=== PATIENT | female | born 1985 | race Caucasian/White ===

== ENCOUNTER 2016-12-16 09:31 | Observation (INO) | payer OTHER ==
[2016-12-09 14:50] VITALS: BMI 55.0
[2016-12-16] VITALS (7 sets, daily range): BP systolic 97–137; BP diastolic 60–89; PULSE 91–115; TEMP 36.5–37.5; O2SAT 91–98; Ht 162.6 cm; Wt 145.4 kg
[~2016-12-16] VITALS: Ht 162.6 cm; Wt 145.4 kg
[~2016-12-16 09:31] MED LIST: ACET325T96 PO; ALBUAER INH; CEFAZOLIN 3000 MG/65 ML D5W 65 ML IV SCH; CYCL10TA6 PO; DICL-201 PO; ENOXAPARIN 40 MG/0.4 ML SYR SQ SCH; FENTANYL CITRATE INJ 50 MCG/1 ML 2 ML VIAL ONE; LACTATED RINGER'S 1000ML 1,000 ML IV SCH; LEVO-371 PO; MIDAZOLAM HCL 1 MG/ML 2ML VIAL ONE; PRLSR20 PO; TEST1INJ2 IM
[2016-12-16] MEDS ORDERED: LIDOCAINE/EPINEPHRINE 1% 20 ML VIAL ONE (10:18)
[2016-12-16] MEDS ORDERED: BUPIVACAINE/EPINEPHRINE 0.25% 1:200,000 30 ML VIAL ONE (10:19)
[2016-12-16] MEDS ORDERED: BUPIVACAINE 0.25% 30 ML VIAL ONE (10:19)
--- NOTE | 2016-12-16 10:20 | History & Physical Bridge Note ---
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
[2016-12-16] MEDS ORDERED: SCOPOLAMINE 1.5 MG TDSY TD ONE ×2 (10:36→10:45)
[2016-12-16] MEDS ORDERED: EpHEDrine SULFATE INJ 50 MG/ML AMP IV PRN (10:45)
[2016-12-16] MEDS ORDERED: ONDANSETRON INJ 2 MG/ML 2 ML VIAL IV PRN ×2 (10:45→15:00)
[2016-12-16] MEDS ORDERED: ATROPINE SULFATE 0.1 MG/ML 5ML SYR IV PRN (10:45)
[2016-12-16] MEDS ORDERED: FENTANYL CITRATE INJ 50 MCG/1 ML 2 ML VIAL IV PRN (10:45)
[2016-12-16] MEDS ORDERED: HYDROmorphone INJ 1 MG/ML SYR IV PRN (10:45)
[2016-12-16] MEDS ORDERED: PROPOFOL IV EMULSION 10 MG/ML 20 ML VIAL IV ONE (11:12)
[2016-12-16] MEDS ORDERED: LIDOCAINE HCL 2% 2 ML VIAL (20MG/ML) ONE (11:12)
[2016-12-16] MEDS ORDERED: ROCURONIUM BROMIDE 10 MG/ML 5 ML VIAL ONE (11:12)
[2016-12-16] MEDS ORDERED: GLYCOPYRROLATE INJ 0.2 MG/ML VIAL ONE (11:12)
[2016-12-16] MEDS ORDERED: NEOSTIGMINE METHYLSULFATE 5 MG/5 ML SYR ONE (11:12)
[2016-12-16] MEDS ORDERED: ONDANSETRON INJ 2 MG/ML 2 ML VIAL ONE (11:12)
[2016-12-16] MEDS ORDERED: SUCCINYLCHOLINE CHLORIDE 20 MG/ML 10 ML VIAL IV ONE (11:12)
[2016-12-16] MEDS ORDERED: FENTANYL CITRATE INJ 50 MCG/1 ML 2 ML VIAL ONE ×4 (11:13→13:57)
[2016-12-16] MEDS ORDERED: ACETAMINOPHEN 1000 MG/100 ML IV IV ONE (11:17)
[2016-12-16] MEDS ORDERED: PHENYLEPHRINE 100MCG/ML 5ML SYR ONE (12:39)
--- NOTE | 2016-12-16 14:44 | [facility] Post Operative Brief Note ---
Immediate Operative Summary Operative Date Dec 16, 2016. Pre-Operative Diagnosis Hsolns-cm-wtin transgender/gender dysphoria Post-Operative Diagnosis Same as preoperative diagnosis Procedure(s) Performed Bilateral Non-Cancerous Mastectomy with Free Nipple Graft Surgeon Dr. Vane Chacon Developmental Mathematics Instructor Surgeon(s) Delphine eLzama PA-C Estimated Blood Loss 50 mL Findings none Specimens C: additional midline breast tissue Drains KATLIN x2 Anesthesia general Complication(s) None Disposition Recovery Room / PACU
--- NOTE | 2016-12-16 14:54 | Discharge Instructions ---
Discharge Instructions Date of Service Dec 16, 2016. Admission Reason for Admission: [facility] Transgender Person Discharge Discharge Diagnosis / Problem: gender dysphoria Discharge Goals Goal(s): Decrease discomfort Activity Recommendations Activity Limitations: per Instructions/Follow-up section . Instructions / Follow-Up Instructions / Follow-Up ACTIVITY RECOMMENDATIONS: __Normal activities _x_No bending, lifting or straining __No driving __Driving allowed when you are off pain medications _x_Walking permitted __You should have help at home for ___ days DRESSINGS: __No dressings required _x_Keep dressings dry/in place until first office visit __Remove dressings ___ and leave dressings off __Apply ice ___ days __Remove dressings and reapply garment __Apply antibiotic ointment (Bacitracin, Neosporin, etc) to wounds 3-4 times/ day for 10 days BATHING: _x_Keep dressings dry _x_Sponge bathing permitted __Showering permitted _x_No swimming, hot tubs or soaking in a tub MEDICATIONS: Resume previous medications unless instructed otherwise by your surgeon. _x_Do not use aspirin, Motrin, Advil or Ibuprofen as these may promote bleeding. Please use Tylenol. _x_Prescription(s) provided: pain medication and antibiotics were provided at your last office visit OTHER INSTRUCTIONS: _x_Record drain output 2-3 times per day. Call the office when drainage is less than 20mL/24 hours SPECIAL CARE INSTRUCTIONS: * It is normal to have a mild fever after surgery. If your temperature is higher than 101.5 degrees F, please call the office at [phone]. * Constipation is a typical side effect of pain medication. An over-the- counter stool softener will help relieve this. * Leaking around surgical drains may occur and should not cause concern. Sometimes these drains become clogged. If this happens, remove the bulb and milk the clot out of the tube, then replace the bulb. * Drainage from wounds after liposuction is normal and should be expected. Garments will become soiled. You should protect furniture and bedding. This drainage should mostly subside within 2-3 days. Leave garments in place unless instructed to remove them. * If you have unusual drainage from a wound or are concerned you have an infection or have any questions or concerns, please call the office at [phone]. FOLLOW UP VISIT: If not already scheduled, please call the office, , when you return home after surgery to schedule an appointment to be seen in _6__ days. Current Hospital Diet Patient's current hospital diet: Regular Diet Discharge Diet Recommended Diet: Regular Diet Procedures Procedures Performed: Bilateral Non-Cancerous Mastectomy with Free Nipple Graft Pending Studies Studies pending at discharge: yes List of pending studies: pathology Medical Emergencies . Who to Call and When: Medical Emergencies: If at any time you feel your situation is an emergency, please call 911 immediately. . Non-Emergent Contact Non-Emergency issues call your: Primary Care Provider, Surgeon . "Provider Documentation" section prepared by Delphine Lezama. . VTE Core Measure Inpt VTE Proph given/why not?: Enoxaparin (Lovenox)SQ, SCD's [place] Drug Monitoring Program Search Results: no issues identified
[2016-12-16] MEDS ORDERED: IV FLUIDS COMPLETED PRN (15:00)
[2016-12-16] MEDS ORDERED: MoRPHine SULFATE 2 MG/ML CARP IV PRN ×3 (15:00)
[2016-12-16] MEDS ORDERED: PROMETHAZINE HCL INJ 12.5 MG in SODIUM CHLORIDE 0.9% 50ML 50 ML IV PRN (15:00)
[2016-12-16] MEDS ORDERED: OXAZEPAM 10MG CAP PO PRN (15:00)
[2016-12-16] MEDS ORDERED: OXYCODONE/ACETAMINOPHEN 5-325 TAB PO PRN (15:00)
[2016-12-16] MEDS ORDERED: ACETAMINOPHEN 325 MG TAB PO PRN (15:00)
[2016-12-16] MEDS ORDERED: DiphenhydrAMINE HCL 50 MG/ML VIAL IV PRN (15:00)
--- NOTE | 2016-12-16 15:38 | Anesthesiology Progress Note ---
Anesthesia Post Op Note Date & Time Dec 16, 2016 at 15:38 Vital Signs Pain Intensity: 0 Vital Signs Past 12 Hours Date Time Temp Pulse Resp B/P (MAP) Pulse Ox O2 Delivery O2 Flow Rate FiO2 12/16/16 15:22 36.8 101 15 132/82 (95) 96 Nasal Cannula 2 12/16/16 15:16 143/83 12/16/16 15:16 143/83 12/16/16 15:14 105 15 12/16/16 15:14 105 15 94 12/16/16 15:14 105 15 12/16/16 15:14 105 15 94 12/16/16 15:11 136/81 12/16/16 15:11 136/81 12/16/16 15:09 115 34 12/16/16 15:09 115 34 12/16/16 15:09 117 34 95 12/16/16 15:09 117 34 95 12/16/16 15:06 131/80 12/16/16 15:06 131/80 12/16/16 15:04 106 0 94 12/16/16 15:04 106 0 12/16/16 15:04 106 0 12/16/16 15:04 106 0 94 12/16/16 15:01 130/80 12/16/16 15:01 130/80 12/16/16 15:00 134/85 12/16/16 15:00 134/85 12/16/16 14:59 36.6 117 16 134/85 94 Mask 10 12/16/16 10:10 37.1 96 20 124/79 (94) 97 Room Air Notes Mental Status: alert / awake / arousable, participated in evaluation Pt Amnestic to Procedure: Yes Nausea / Vomiting: adequately controlled Pain: adequately controlled Airway Patency, RR, SpO2: stable & adequate BP & HR: stable & adequate Hydration State: stable & adequate Anesthetic Complications: no major complications apparent
[2016-12-16] MEDS: LACTATED RINGER'S 1000ML 1,000 ML IV SCH (17:12)
[2016-12-16] MEDS: CEFAZOLIN IV 2,000 MG in DEXTROSE 5% 50ML 50 ML IV SCH (18:48)
[2016-12-17] MEDS: LACTATED RINGER'S 1000ML 1,000 ML IV SCH (02:28)
[2016-12-17] MEDS: CEFAZOLIN IV 2,000 MG in DEXTROSE 5% 50ML 50 ML IV SCH (02:28)
[2016-12-17 03:29] VITALS: BP 115/72; PULSE 102; TEMP 37.5; O2SAT 92
[2016-12-17 06:55] VITALS: BP 97/66; PULSE 106; TEMP 37.3; O2SAT 92
[2016-12-17 08:01] LABS: INR 1.1 (0.9-1.1); PARTIAL THROMBOPLASTIN RATIO 1.1; PROTHROMBIN TIME (PATIENT) 11.8 SECONDS (9.0-12.0)
[2016-12-17] MEDS: OXYCODONE/ACETAMINOPHEN 5-325 TAB PO PRN ×2 (08:31→12:30)
--- NOTE | 2016-12-17 08:34 | Anesthesiology Progress Note ---
Anesthesia Post Op Note Date & Time Dec 17, 2016 at 08:33 Vital Signs Pain Intensity: 8.0 Vital Signs Past 12 Hours Date Time Temp Pulse Resp B/P (MAP) Pulse Ox O2 Delivery O2 Flow Rate FiO2 12/17/16 06:55 37.3 106 17 97/66 (76) 92 Room Air 12/17/16 03:29 37.5 102 16 115/72 (86) 92 Room Air 12/17/16 01:00 Room Air 12/16/16 23:23 37.5 115 16 109/72 (84) 94 Room Air Notes Mental Status: alert / awake / arousable, participated in evaluation Pt Amnestic to Procedure: Yes Nausea / Vomiting: adequately controlled Pain: adequately controlled Airway Patency, RR, SpO2: stable & adequate BP & HR: stable & adequate Hydration State: stable & adequate Anesthetic Complications: no major complications apparent
[2016-12-17] MEDS ORDERED: ENOXAPARIN 40 MG/0.4 ML SYR SQ SCH (09:00)
[2016-12-17] MEDS ORDERED: MULTIVITAMIN TAB PO SCH (09:00)
--- NOTE | 2016-12-17 11:13 | Surgery Progress Note ---
Surgery Progress Note Date of Service Dec 17, 2016. Subjective Post OP Day: 1 + feeling well, + complaints (right arm feels numb), + pain controlled, No chest pain, No SOB Objective Vital Signs: Date Time Temp Pulse Resp B/P (MAP) Pulse Ox O2 Delivery O2 Flow Rate FiO2 12/17/16 08:30 Room Air 12/17/16 06:55 37.3 106 17 97/66 (76) 92 Room Air 12/17/16 03:29 37.5 102 16 115/72 (86) 92 Room Air 12/17/16 01:00 Room Air 12/16/16 23:23 37.5 115 16 109/72 (84) 94 Room Air 12/16/16 20:00 36.7 97 18 100/62 (75) 95 Room Air 12/16/16 19:00 36.6 91 16 97/60 (72) 98 Room Air 12/16/16 17:59 36.5 97 18 114/78 (90) 91 Room Air 12/16/16 17:30 37.0 99 16 137/89 (105) 96 Nasal Cannula 2.0 12/16/16 17:00 94 Nasal Cannula 2.0 12/16/16 17:00 94 Nasal Cannula 2.0 12/16/16 16:37 103 17 94 12/16/16 16:37 105 17 12/16/16 16:36 137/87 12/16/16 16:32 98 0 12/16/16 16:32 101 0 94 12/16/16 16:31 132/88 12/16/16 16:27 103 0 12/16/16 16:27 102 0 94 12/16/16 16:26 142/79 12/16/16 16:22 99 0 93 12/16/16 16:22 96 0 12/16/16 16:21 132/77 12/16/16 16:17 115 19 12/16/16 16:17 114 19 131/81 92 12/16/16 16:12 116 23 91 12/16/16 16:12 114 23 12/16/16 16:11 137/82 12/16/16 16:07 111 10 94 12/16/16 16:07 108 10 12/16/16 16:06 141/82 12/16/16 16:03 97 12/16/16 16:03 97 92 7/17/17 16:02 100 7/17/17 16:02 100 90 7/17/17 16:01 138/83 7/17/17 15:57 102 19 7/17/17 15:57 102 19 93 7/17/17 15:56 138/84 7/17/17 15:52 118 20 7/17/17 15:52 119 20 93 7/17/17 15:51 130/60 7/17/17 15:47 111 5 7/17/17 15:47 109 5 93 7/17/17 15:46 134/91 7/17/17 15:42 96 4 7/17/17 15:42 96 4 93 7/17/17 15:41 148/82 7/17/17 15:37 94 1 93 7/17/17 15:37 93 1 7/17/17 15:36 138/79 7/17/17 15:32 110 23 93 7/17/17 15:32 112 23 7/17/17 15:31 140/82 7/17/17 15:27 104 1 95 7/17/17 15:27 105 1 7/17/17 15:26 132/82 7/17/17 15:22 36.8 101 15 132/82 (95) 96 Nasal Cannula 2 7/17/17 15:22 97 0 7/17/17 15:22 99 0 95 7/17/17 15:21 145/81 7/17/17 15:17 111 6 7/17/17 15:17 112 6 93 7/17/17 15:16 143/83 7/17/17 15:16 143/83 7/17/17 15:14 105 15 7/17/17 15:14 105 15 94 7/17/17 15:14 105 15 7/17/17 15:14 105 15 94 7/17/17 15:11 136/81 7/17/17 15:11 136/81 7/17/17 15:09 115 34 7/17/17 15:09 115 34 7/17/17 15:09 117 34 95 7/17/17 15:09 117 34 95 7/17/17 15:06 131/80 7/17/17 15:06 131/80 7/17/17 15:04 106 0 94 7/17/17 15:04 106 0 7/17/17 15:04 106 0 12/16/16 15:04 106 0 94 12/16/16 15:01 130/80 12/16/16 15:01 130/80 12/16/16 15:00 134/85 12/16/16 15:00 134/85 12/16/16 14:59 36.6 117 16 134/85 94 Mask 10 Physical Exam: KATLIN drainage (bloody drainage) General Appearance: WD/WN, no apparent distress Incision(s): clean, dry, intact, no erythema, findings (nipple bolster dressing intact) Extremities: normal range of motion, normal inspection Laboratory Results: Results Past 24 Hours Test 12/17/16 07:27 Range/Units Prothrombin Time 11.8 9.0-12.0 SECONDS Prothromb Time International Ratio 1.1 0.9-1.1 Activated Partial Thromboplast Time 29.0 21.0-31.0 SECONDS Partial Thromboplastin Ratio 1.1 Assessment & Plan s/p non-cancerous mastectomy 1. doing well and pain controlled. Right arm sensations likely due to positioning and history of right shoulder injury. Discussed incision care and activity restrictions. He will f/u in office next week. D/C home today
[2016-12-17 11:28] VITALS: BP 97/66; PULSE 106; TEMP 37.3; O2SAT 92
--- NOTE | 2016-12-17 16:13 | Discharge Summary ---
Discharge Summary Date of Service Dec 17, 2016. Admission Date/Reason Dec 16, 2016 at 14:50 [id number] Transgender Person. Discharge Date/Disposition Dec 17, 2016 Home Diagnosis Principal Diagnosis: gender dysphoria Procedure(s) Performed non-cancerous mastectomy Medication Reconciliation Continued Medications: Acetaminophen Tab (Tylenol) 325 Mg Tab 650 MG PO PRN, TAB Albuterol (Proventil Hfa) Aers 2 PUFFS INH QID PRN for PRN Cyclobenzaprine Hcl (Flexeril) 10 Mg Tab 10 MG PO PRN, #21 TAB Diclofenac (Voltaren) 75 Mg Tabcr 75 MG PO BID PRN for PRN, TAB PER PT WILL STOP 1 WEEK BEFORE SURG-WITH FOOD Levocetirizine Dihydrochloride (Xyzal) 5 Mg Tab 5 MG PO QPM Omeprazole (Prilosec) 20 Mg Capcr 20 MG PO PRN, CAP Testosterone Cypionate (Testosterone Cypionate) 200 Mg/Ml Inj 0.4 ML IM WEEK TUESDAYS Admission Physical Exam As per Admitting History & Physical. Hospital Course Patient was admitted to [facility] with history of gender dysphoria. He was taken to the OR and underwent non-cancerous mastectomy with free nipple graft. There were no intraoperative complications. Two KATLIN drains were placed intraoperatively. He was taken to recovery and admitted to med/surg for observation. He had some nausea during the night which resolved on POD#1. He then tolerated a regular diet. His pain was well controlled. On exam, his KATLIN drains had bloody output. His VSS and he denies SOP or CP. His incisions were CDI and there was no evidence of infection. He was discharged home with instructions to follow-up in the office. Discharge Instructions Please refer to the electronic Patient Visit Report (Discharge Instructions) for additional information.
--- NOTE | 2016-12-19 09:44 | [facility] Operative Report ---
Operative Report Operative Date Dec 19, 2016. Pre-Operative Diagnosis [id number] transgender/gender dysphoria Post-Operative Diagnosis Same as preoperative diagnosis Procedure(s) Performed Bilateral Non-Cancerous Mastectomy with Free Nipple Graft Surgeon Dr. Vane Chacon Survey Questionnaire Designer Surgeon(s) Delphine Lezama PA-C Estimated Blood Loss 50 mL Findings none Specimens C: additional midline breast tissue Drains KATLIN x2 Anesthesia general Complication(s) None Disposition Recovery Room / PACU Indications Patient is a 31-year-old female to male transgender patient who presented to my office desiring gender confirmation surgery. He has been on hormone therapy managed by a physician in the [facility] for at least 2 years, and has been seen by therapist regarding his gender dysphoria. He has legally changed his name and gender, and presents as a male. He has had 2 prior breast reduction surgeries, but desired mastectomy. Description of Procedure The risks benefits and alternatives of the procedure were discussed with the patient. Given his still fairly large breast size, we discussed performing mastectomy via inframammary fold approach with free nipple grafting. Consent was obtained. Was identified and marked in the preop holding area. Was brought to the operating room he was positioned supine placed under anesthesia without incident. Surgical site markings were reassessed. Surgical site was prepped and draped sterilely. Time-out procedure was performed. I began with the left side. 1 percent lidocaine with epinephrine was used to anesthetize the incision. Additionally, the nipple-areolar complex was anesthetized and an areolar graft measuring 25 millimeters was harvested. Due to his relatively large nipple size, I then harvested a separate smaller nipple graft. These were placed on the back table until it was time to prepare the graft. Incision was made about 1 centimeter above the inframammary fold in order to allow for maximal skin for wound closure given his high nipple position. This incorporated is prior reduction mammoplasty scar. Incision was deepened using electrocautery down to chest wall. Breast parenchyma was elevated off of the rectus fascia and chest wall using electrocautery. Once I was certain I would be able to achieve wound closure, superior incision was made creating an ellipse of skin. dissection was carried through the dermis using electrocautery and into the subcutaneous fat. Breast capsule was identified and I was able to raise the superior mastectomy flap of subcutaneous fat approximately 1 thickness to the inferior aspect of the incision along the inframammary fold. Dissection was carried superiorly to the clavicle and to the axillary tail. Hemostasis was achieved throughout. Specimen was passed off once dissection was complete. It should be noted the patient had a large standing cutaneous deformity from prior breast reduction surgery given his obesity, and I was unable to address this at the time of the procedure due to the very posterior nature of these dog-ears. Wound was irrigated with normal saline. 0.25 percent Marcaine plain was used to anesthetize the flaps and pectoralis fascia. Fifteen Peruvian Mayco drain was brought through a separate stab incision laterally. I undermined the inframammary fold using electrocautery to improve the chest contour. 2-0 Vicryl deep dermal sutures incorporating some of the underlying subcutaneous fat were placed. 2-0 PDO Quill suture was used to close the superficial dermis. 3-0 Monocryl running subcuticular suture was used to close the skin. I then created a graft recipient site and previously marked location. A 15 blade scalpel used to make the incision and tissue was de-epithelialized. At this point the graft was prepared using a curved iris scissor to defat the graft. Was sutured into the recipient site using 4-0 chromic running suture. Centrally, a circular incision was made to allow for inset of the nipple graft. This was thinned to some extent, but left with some projection. 4-0 chromic interrupted sutures were placed. 4-0 silk tie-over bolster sutures were placed. Similar procedure was undertaken on the right side. Prior to complete closure, a large standing cutaneous deformity was noted in the midline as result of the patient's large breast size and obesity. I was able to excise this in a curvilinear fashion to improve the cosmesis since the incision would be crossing midline. After complete wound closure, Dermabond Prineo was applied to the incisions. Tie- over bolster dressing of Xeroform and sterile cotton were placed to the nipple graft sites. Dry dressings and surgical bra were placed. Procedure was tolerated well. Patient was awakened and transferred garment satisfactory condition. Delphine Lezama PA-C was present and scrubbed throughout the entire procedure and was instrumental in providing retraction during dissection, assisting in simultaneous wound closure, and preparing the nipple-areolar complex grafts. I attest to the content of the Intraoperative Record and any orders documented therein. Any exceptions are noted below.
--- NOTE | 2017-01-20 06:12 | CODING QUERY MEDICAL NECESSITY ---
CQSUPPORTING DIAGNOSIS NEEDED A supporting diagnosis is required for the test/procedure performed on this patient in order for us to be reimbursed by the patient's insurance. Please provide a supporting diagnosis for the following test/procedure listed below next to the test name along with your signature. *If there is no additional diagnosis for this patient that would support the following test/procedure please document that below next to the test/procedure. Test(s)/Procedure(s) that require a supporting diagnosis: DOS 12/16/16 COSMETIC AND RECONSTRUCTION SURGERY (BREAST REMOVAL) Provider Signature: Date: Thank you Alfreda Langston Health Information Management Once completed, please kindly fax back to [phone] For questions please call [phone]
== END 2016-12-17 14:28 | disposition home or self-care (01) ==
LOC: C.ACU 09:31 → C.MSW 14:50 → EDSEX 14:50 → ENRESERV 15:38
PROVIDERS: ADMIT Plastic Surgery; ATTEND Plastic Surgery
DX: F64.0 Transsexualism (principal); N60.11 Diffuse cystic mastopathy of right breast; N62 Hypertrophy of breast; J45.909 Unspecified asthma, uncomplicated; Z86.14 Personal history of Methicillin resistant Staphylococcus aureus infection; Z90.710 Acquired absence of both cervix and uterus; Z90.722 Acquired absence of ovaries, bilateral; Z83.3 Family history of diabetes mellitus